=== PATIENT | female | born 1960 ===

== ENCOUNTER → 2018-01-07 10:09 | Outpatient (CLI) | payer OTHER, SELFPAY ==
--- NOTE | 2018-01-07 | DI.MRI.S_ITS ---
PROCEDURE: MR LUMBAR SPINE WO CON INDICATIONS: ACUTE RIGHT SIDED LOW BACK PAIN RIGHT SCIATICA TECHNIQUE: Noncontrast sagittal T1 spin echo and T2 fast echo, sagittal STIR, axial T1 and T2 fast spin echo through the lumbar spine. In cases with scoliosis, additional coronal T2 fast spin echo may be performed. COMPARISON: None. FINDINGS: Image quality: Excellent. Alignment and Curvature: No plain films are available for comparison, for numbering purposes. Thus, for the purposes of this examination, 5 lumbar type vertebral bodies will be presumed, as denoted on the montage panel. This should be confirmed and correlated with plain films, prior to any lumbar spinal intervention.There is normal bony alignment. Bone Marrow: Marrow is of normal overall signal. No acute vertebral body compression fractures. Spinal Cord: Conus medullaris terminates at the upper L2 level. Visualized cord demonstrates normal signal and size. Paraspinous Soft Tissues: No paravertebral masses. L1-L2: Mild bilateral facet hypertrophy. No significant canal, nor foraminal stenosis. L2-L3: Mild bilateral facet hypertrophy. Mild epidural lipomatosis. Mild canal stenosis. No foraminal stenosis. L3-L4: Mild disc desiccation and mild diffuse disc bulge. Mild bilateral facet hypertrophy. Mild epidural lipomatosis. Moderate canal stenosis. Mild bilateral foraminal stenosis. L4-L5: Moderate disc desiccation. Mild diffuse disc bulge. Mild bilateral facet hypertrophy. Mild canal stenosis. Minimal foraminal stenosis bilaterally. L5-S1: Mild bilateral facet hypertrophy. No significant canal, nor foraminal stenosis. IMPRESSION: 1. Multilevel degenerative disc and facet disease, as well as ligamentum flavum hypertrophy and epidural lipomatosis. 2. Mild multilevel canal and foraminal stenoses. No neural impingement. Dictated by: Krys Abdalla M.D. on 01/09/2018 at 9:22 Approved by: Krys Abdalla M.D. on 01/09/2018 at 9:27
== END ==
PROVIDERS: Visit Provider Family Medicine
DX: M51.16 Intervertebral disc disorders with radiculopathy, lumbar region (principal); M48.061 Spinal stenosis, lumbar region without neurogenic claudication; E88.2 Lipomatosis, not elsewhere classified
CPT/HCPCS: 72148

== ENCOUNTER → 2020-09-30 10:35 | Outpatient (CLI) | payer BC, SELFPAY ==
--- NOTE | 2020-09-30 10:37 | DI.US.S_ITS ---
PROCEDURE: US PELVIC COMPLETE INDICATIONS: POSTMENOPAUSAL BLEEDING TECHNIQUE: Real-time scanning was performed of the pelvic organs, with image documentation. Additional endovaginal scanning was necessary due to incomplete visualization of the adnexal and endometrial structures by transabdominal scanning. COMPARISON: None. FINDINGS: Uterus: Uterus is enlarged in size at 8.2 x 9.6 x 11.2 cm. The endometrium could not be accurately visualized due to multiple overlying fibroids. There is a midline intramural fibroid that measures up to 6.0 x 7.6 x 8.1 cm, and on the left there is an anterior intramural fibroid measuring up to 2.7 x 2.9 x 4.0 cm. Also on the left there is a posterior intramural fibroid measuring up to 1.7 x 2.0 x 2.0 cm. This produces heterogeneous shadowing. Ovaries: Not effectively visualized bilaterally likely due to postmenopausal ovarian atrophy and overlying bowel gas. Other: No pathologic free abdominal or pelvic fluid. IMPRESSION: Discussed above the quality of visualization of the endometrial lining is very limited, and accurate assessment for presence or absence of endometrial mass lesion is not possible. The ovaries also could not be seen. Therefore depending on the clinical status follow-up by pelvic MR gynecological malignancy protocol scanning without and with contrast likely is warranted. Dictated by: Luis Carlos Guillory M.D. on 09/30/2020 at 13:02 Approved by: Luis Carlos Guillory M.D. on 09/30/2020 at 13:04
== END ==
PROVIDERS: PCP Family Medicine; Referring Provider Obstetrics & Gynecology; Visit Provider Obstetrics & Gynecology
DX: N95.0 Postmenopausal bleeding (principal); D25.1 Intramural leiomyoma of uterus; Z85.3 Personal history of malignant neoplasm of breast; Z79.811 Long term (current) use of aromatase inhibitors
CPT/HCPCS: 76830; 76856

== ENCOUNTER → 2020-10-13 09:38 | Outpatient (CLI) | payer OTHER, SELFPAY ==
[2020-10-13 17:57] LABS: COVID19 -Nasal RAPID Negative (Negative)
== END ==
PROVIDERS: PCP Family Medicine; Visit Provider Obstetrics & Gynecology
DX: Z01.812 Encounter for preprocedural laboratory examination (principal); Z20.822 Contact with and (suspected) exposure to COVID-19
CPT/HCPCS: 87635

== ENCOUNTER 2020-10-14 10:01 | Day surgery (SDC) | payer OTHER, SELFPAY ==
[2020-10-14] VITALS (9 sets, daily range): BP systolic 117–137; BP diastolic 54–74; PULSE 65–81; RESP 10–20; TEMP 36.3–36.8; O2SAT 97–100; BMI 43.0
--- NOTE | 2020-10-14 | PATH_ITS ---
[facility] Accession Number: [id number] . 01 Material submitted: . endometrium - ENDOMETRIAL CURETTINGS . 01 Clinical history: . HYSTEROSCOPY D/C . 02 Diagnosis: Endometrial Curettings: Portions of endometrial tissue with features of cystic atrophy; negative for glandular hyperplasia, cytologic atypia, or malignancy. Some endometrial fragments demonstrate prominent vessels, suggestive of polyp, if clinical and imaging studies are concordant. V 10/16/2020 1143 Local . 02 Electronically signed: . Sheela Dawn MD, Pathologist NPI- [id number] . 01 Gross description: . ENDOMETRIAL CURETTINGS: Received in formalin are multiple fragment(s) of raphael, soft tissue measuring 3.0 x 0.6 x 0.2 cm in aggregate submitted entirely in 1 cassette(s) 1. /MICHELINE 10/15/2020 0654 Local . 02 Pathologist provided ICD-10: N95.0, Z85.3 . 02 CPT . 767382 Performed at: 01 [facility] [address] [facility], [place], [place] [id number] MD Zachariah Garibay MD Phone: [phone] Performed at: 02 [facility] [address] [place], [place] [id number] MD Aurelia Elias MD Phone: [phone]
--- NOTE | 2020-10-14 09:33 | PM.HP.1 ---
History of Present Illness History of Present Illness Date Patient Seen: 10/14/20 Time Patient Seen: 12:12 Chief complaint: HYSTEROSCOPY D&C Narrative: Patient is a 59-year-old 2 para 0 with postmenopausal bleeding and an enlarged fibroid uterus. She had a stenotic cervix and endometrial biopsy was unsuccessful in the office. Patient History Surgical History (Updated 10/14/20 @ 09:34 by Aurea Cain MD) Status post left breast lumpectomy Family & Social History Tobacco & Substance use: Smoking Status Former smoker Meds Home Medications and Allergies Home Medications Medication Instructions Recorded Confirmed Type aRMOUR PO 10/09/20 History atorvastatin 40 mg tablet 40 mg PO DAILY 10/09/20 10/14/20 History epinephrine 0.3 mg/0.3 mL 0.3 mg IM Q5-15M PRN 10/09/20 10/09/20 History injection, auto-injector (EpiPen) exemestane 25 mg tablet 25 mg PO DAILY 10/09/20 10/14/20 History lisinopril 2.5 mg tablet 2.5 mg PO DAILY 10/09/20 10/14/20 History metformin 500 mg tablet 500 mg PO BID 10/09/20 10/14/20 History montelukast 10 mg tablet 10 mg PO DAILY 10/09/20 10/09/20 History triamterene 37.5 1 tab PO DAILY 10/09/20 10/14/20 History mg-hydrochlorothiazide 25 mg tablet Allergies Allergy/AdvReac Type Severity Reaction Status Date / Time amoxicillin Allergy Intermediate Verified 10/14/20 10:18 Sulfa (Sulfonamide Allergy Intermediate Verified 10/14/20 10:18 Antibiotics) Exam Narrative Exam Narrative: HEENT: No thyromegaly, no anterior cervical or supraclavicular lymphadenopathy. Lungs:Clear to auscultation bilaterally, no wheezes. Cardiovascular: Regular rate and rhythm, no murmurs, rubs, or gallops. Abdomen: No scars. No hepatosplenomegaly. No masses palpable. External genitalia: Normal Vagina: Normal Cervix: Stenotic Bimanual exam: 11 Week size anteverted uterus. Mobile. No adnexal masses or tenderness Assessment & Plan Assessment & Plan narrative: Assessment: 59-year-old 2 para 0 with postmenopausal bleeding and 11 week size fibroid uterus Stenotic cervix Plan: D&C hysteroscopy The risks, benefits, and alternatives to the procedure were explained to the patient. The risks including bleeding, infection, and uterine perforation. She understands these risks and agrees to proceed. A full par Q was held and consent form was signed. COVID-19 COVID-19 status: Negative Result date/Date tested (Pos, Neg/Pending): 10/13/20 Time Spent With Patient Time with patient: less than 15 minutes
--- NOTE | 2020-10-14 09:36 | PM.PREOP ---
Pre-operative Note COVID-19 COVID-19 status: Negative Result date/Date tested (Pos, Neg/Pending): 10/13/20 Interval Note History & Physical reviewed/Exam performed by Physician: Yes Changes to H&P: No H&P completed within 30 days and has changed as indicated here:: 10/14/20
[2020-10-14] MEDS: LACTATED RINGERS 1,000 ML 100 ML IV (10:55)
--- NOTE | 2020-10-14 12:42 | SUR.OPER ---
Lithotomy on padded OR bed, head on pillow, arms secured on padded arm boards at <90 degrees abduction. Legs secured in padded yellow fins stirrups.
--- NOTE | 2020-10-14 12:53 | PM.GYNOP.1 ---
Operative Date/Time/Diagnoses Date of procedure: 10/14/20 Time of procedure: 12:53 Pre-op diagnosis: Postmenopausal bleeding Stenotic cervix Exemestane use Post-op diagnosis: same Procedure & Clinicians Procedure: Procedures Operation Date: 10/14/20 11:15 Actual Procedure Side Surgeon p Hysteroscopy D&C Aurea Cain MD Indications: Postmenopausal bleeding Stenotic cervix Exemestane use Surgeon: Aurea Cain Anesthesia Type: General (LMA) Operative Notes Findings: 8 week size anteverted uterus Both fallopian tube ostia observed No polyps No significant thickening of the lining of the uterus Closure Type: not applicable Specimen(s): endometrial curettings Estimated blood loss (mL): 10 Blood products transfused: none Procedure in detail: After informed consent was obtained, the patient was taken to the operating room where she was placed in the dorsal supine position. After adequate LMA general anesthesia was achieved, she was placed in the dorsal lithotomy position, and prepped and draped in the usual sterile fashion. A time-out was performed. A bivalve speculum was placed into the vagina and the anterior lip of the cervix grasped with a single-tooth tenaculum. The cervical os was sequentially dilated until the hysteroscope could pass easily into the endometrial cavity. Both fallopian tube ostia were observed. There were no polyps. There was no significant thickening of the lining of the uterus. The hysteroscope was removed. Sharp curettage was performed yielding moderate amount of endometrial curettings. The instruments were removed from the uterus. The single-tooth tenaculum was removed from the anterior lip of the cervix. The bivalve speculum was removed from the vagina. Sponge, lap, and instrument counts were correct x2. The patient tolerated the procedure well, and was taken to PACU in stable condition. Complications: none Post-operative Condition: stable Disposition: PACU Plan for aftercare: Home after recovery
[2020-10-14] MEDS: ALBUTEROL 2.5 MG/3 ML NEB (ADULT) INH (13:04)
--- NOTE | 2020-10-14 13:36 | SUR.PHASEI ---
1325 Pt to OPD. SBAR report at [facility] to Araceli PINEDO
--- NOTE | 2020-10-14 14:11 | SUR.PHASEII ---
called [facility] and left message inquiring about status of prescription of oxycodone. Patient and will check pharmacy [place] 4:00. [place]ing pass given and faxed.
== END 2020-10-14 14:12 | disposition home or self-care (01) ==
PROVIDERS: PCP Family Medicine; Referring Provider Obstetrics & Gynecology; Visit Provider Obstetrics & Gynecology
PROC: 0UDB8ZZ Extraction of Endometrium, Via Natural or Artificial Opening Endoscopic (ICD-10-PCS; CPT 58558; principal; 2020-10-14 11:15)
DX: N95.0 Postmenopausal bleeding (principal); Z85.3 Personal history of malignant neoplasm of breast; N88.2 Stricture and stenosis of cervix uteri; I10 Essential (primary) hypertension; J45.909 Unspecified asthma, uncomplicated; E03.9 Hypothyroidism, unspecified; E11.9 Type 2 diabetes mellitus without complications; Z79.84 Long term (current) use of oral hypoglycemic drugs
CPT/HCPCS: 58558; 82962; J1100; J1885; J2250; J2405; J2704; J3010; J7613

== ENCOUNTER → 2021-01-12 15:02 | Outpatient (CLI) | payer OTHER, SELFPAY ==
[2021-01-12 15:42] LABS: COVID19 -Nasal RAPID Negative (Negative)
== END ==
PROVIDERS: PCP Family Medicine; Visit Provider Obstetrics & Gynecology
DX: Z01.812 Encounter for preprocedural laboratory examination (principal); Z20.822 Contact with and (suspected) exposure to COVID-19
CPT/HCPCS: 87635

== ENCOUNTER 2021-01-13 06:25 | Day surgery (SDC) | payer OTHER, SELFPAY ==
[2020-12-31 12:36] VITALS: BMI 43.1
[2021-01-05 22:30] VITALS: BP 150/88; PULSE 92; RESP 18; TEMP 36.5; O2SAT 99
[2021-01-13] VITALS (12 sets, daily range): BP systolic 113–142; BP diastolic 57–77; PULSE 65–104; RESP 11–20; TEMP 36.1–37.2; O2SAT 92–98; BMI 43.1
--- NOTE | 2021-01-13 | PATH_ITS ---
[facility] Accession Number: [id number] . 01 Material submitted: . uterus - UTERUS, BILATERAL FALLOPIAN TUBES, BILATERAL OVARIES . 02 Diagnosis: Uterus, Bilateral Fallopian Tubes, Bilateral Ovaries, Laparoscopic Supracervical Hysterectomy and Bilateral Salpingo-oophorectomy (Morcellated Specimen Weight 351 grams): Weakly proliferative endometrium with patchy features of cystic atrophy; negative for glandular hyperplasia, cytologic atypia, or malignancy. Myometrial tissue with multiple leiomyomas (2-25 mm); negative for atypia or malignancy. Uterine serosa with no significant histomorphologic abnormality. First described ovary with no significant histomorphologic abnormality. Second described ovary with a benign serous cyst (5 mm). Fallopian tubes with multiple benign paratubal cysts (1-3 mm); negative for atypia or malignancy. [facility] 01/16/2021 1215 Local . 02 Electronically signed: . Sheela Dawn MD, Pathologist NPI- [id number] . 01 Gross description: . The specimen is received in formalin, labeled uterus, bilateral fallopian tubes and ovaries and consists of a morcellated uterus weighing 351 grams and measuring 18.0 x 15.0 x 6.0 cm in aggregate. A cervix is not identified. The serosa is raphael-pink and smooth. The raphael-pink endometrium measures 0.1 cm in thickness. The myometrium is raphael-pink and trabeculated. There are multiple raphael-white whorled leiomyomata fragments ranging from 0.2-2.5 cm with no areas of hemorrhage, necrosis or cystic degeneration. Two ovaries are identified measuring 2.0 x 1.5 x 1.0 cm and 2.2 x 1.8 x 1.5 cm. The external surfaces are rapahel and cerebriform. Sectioning reveals a 0.6 x 0.5 x 0.4 cm raphael smooth-walled serous-filled cyst with no papillary excrescences. The fallopian tubes average 6.0 cm in length by 1.0 cm in diameter and display a raphael-pink smooth to ragged serosa with multiple paratubal cysts ranging from 0.1-0.3 cm. Sectioning reveals a raphael-pink mucosa and a stellate lumen measuring 0.3 cm in diameter. Underground Drill Operator sections are submitted. . A1-A5: Underground Drill Operator uterus and leiomyomata. A6: Underground Drill Operator ovary. A7: Underground Drill Operator attached fallopian tube, central cross sections and bisected fimbria. A8: Underground Drill Operator other ovary. A9: Underground Drill Operator other attached fallopian tube, central cross sections and bisected fimbria. (EA:[id number]) /MRV 01/14/2021 1110 Local . 02 Pathologist provided ICD-10: D25.9, N95.0 . 02 CPT . 663406 Performed at: [address] [facility] [address] [address], [place], [place] [id number] MD Zachariah Garibay MD Phone: [phone] Performed at: 02 [facility] [address] [place] [id number] MD Aurelia Elias MD Phone: [phone]
[2021-01-13] MEDS: LACTATED RINGERS 1,000 ML 100 ML IV ×4 (07:33→23:23)
--- NOTE | 2021-01-13 07:33 | PM.PREOP ---
Pre-operative Note COVID-19 COVID-19 status: Negative Result date/Date tested (Pos, Neg/Pending): 01/12/21 Interval Note History & Physical reviewed/Exam performed by Physician: Yes Changes to H&P: No H&P completed within 30 days and has changed as indicated here:: 01/12/21
[2021-01-13] MEDS: ACETAMINOPHEN IV 1,000 MG/100 ML VIAL 400 MG IV (07:41)
[2021-01-13] MEDS: CLINDAMYCIN 900 MG/50 ML PIGGYBACK 50 MG IV (07:57)
[2021-01-13] MEDS: BUPIVACAINE 0.5% (PF) 30 ML, EPINEPHrine 0.15 MG INJ (08:33)
[2021-01-13] MEDS: ROPIVACAINE 0.2% PF 2 MG/ML 10ML AMP 20 ML INJ (08:33)
--- NOTE | 2021-01-13 08:35 | SUR.OPER ---
Lithotomy on padded OR bed. Colquitt Pad Positioner under torso. Head on pillow, arms padded and tucked at sides. Legs secured in padded yellow fins stirrups.
--- NOTE | 2021-01-13 10:24 | PM.GYNOP.1 ---
Operative Date/Time/Diagnoses Date of procedure: 01/13/21 Time of procedure: 10:24 Pre-op diagnosis: Enlarged fibroid uterus Postmenopausal bleeding Post-op diagnosis: same Procedure & Clinicians Procedure: Procedures Operation Date: 01/13/21 07:45 Actual Procedure Side Surgeon p Laparoscopic Supracervical Hysterectomy w/ bilateral salpingectomies/oophorectomies Aurea Cain MD Indications: Enlarged fibroid uterus Postmenopausal bleeding Surgeon: Aurea Cain Salesperson [employer]: [employer] Bradford Anesthesia Type: General and Local Operative Notes Findings: 10 week size multi fibroid uterus including a fibroid in the lower uterine segment and on the left side subserosally. Normal tubes and ovaries Closure Type: primary Specimen(s): left tube & ovary, right tube & ovary and uterus Applied: catheter (Removed at the end of the case) Estimated blood loss (mL): 500 Blood products transfused: none Procedure in detail: The patient was taken to the operating room where she was placed in the dorsal supine position. After adequate general endotracheal anesthesia was achieved, she was placed in the dorsal lithotomy position, and prepped and draped in the usual sterile fashion. A timeout was performed. A bivalve speculum was placed into the vagina and the anterior lip of the cervix grasped with a single-tooth tenaculum. The cervical os was sequentially dilated until the ZUMI uterine manipulator could pass easily into the endometrial cavity. The single-tooth tenaculum was removed from the anterior lip of the cervix, and the bivalve speculum was removed from the vagina. Attention was then turned to the abdomen where 6 mL of half percent Marcaine with epinephrine were injected in the umbilical fold. A 5 mm incision was made. The veress needle was placed into the peritoneal cavity, and its placement confirmed by aspiration and drop test. The veress needle was removed. A 5 mm trocar was placed without difficulty. 2 other incisions were made 4 cm lateral to the umbilicus after 5 mL of half percent Marcaine with epinephrine were injected. These were 5 mm incisions. Two, 5 mm trochars were placed under direct visualization. The right tube and ovary were grasped with an atraumatic grasper. Using the plasma kinetic with settings of 40 W the infundibulopelvic ligament was cauterized and cut. The cornua of the uterus was then grasped with an atraumatic grasper. The utero-ovarian ligaments were cauterized and cut. The round ligament and broad ligament were cauterized and cut with plasma kinetic. Hemostasis was achieved. The bladder flap was created using the plasma kinetic with cautery and cut nursing home across. The uterine arteries on the right side were extensively cauterized with plasma kinetic. All of this was repeated on the left side. The remainder of the bladder flap was created using the plasma kinetic, and the bladder taken down off the lower uterine segment and cervix. Using the L[place]oop, the cervix was amputated from the uterus 2 cm above the uterosacral ligaments, after the ZUMI uterine manipulator was removed from the uterus and a moistened sponge stick was placed in the vagina. There was a small amount of bleeding noted from the posterior edge of the cervix, and this was cauterized for hemostasis. 6 mL of half percent Marcaine with epinephrine were injected above the pubic symphysis. A 12mm incision was made. A 12 mm trocar was placed under direct visualization. An Endobag was placed through the suprapubic trochar and the uterus, tubes and ovaries were placed into the Endobag. The trochar was removed. The uterus was morcellated in approximately 8 pieces. The tubes and ovaries were also removed from the Endobag. The Endobag was removed from the peritoneal cavity. The pelvis was copiously irrigated with warm normal saline. No bleeding was noted. 20 mL of 0.2% ropivacaine were placed over the pelvic pedicles. The instruments were removed from the abdomen. The CO2 was allowed to escape. The suprapubic incision was closed on the fascia with 0 Vicryl. All of the incisions were closed with 4-0 Biosyn in a subcuticular fashion. Steri strips, 2x2's and op sites were placed over the incisions. The moistened sponge stick was removed from the vagina. Sponge, lap, and instrument counts were correct x 2. The patient tolerated the procedure well, was taken to PACU in stable condition. Complications: none Post-operative Condition: stable Disposition: PACU Plan for aftercare: To acute care after recovery
--- NOTE | 2021-01-13 10:40 | SUR.PHASEI ---
Patient to recovery room from OR in stable condition; awake but drowsy; vss; denies nausea or SOB: patient denies much pain at this time. Dressings to abdomen CDI; peripad dry. Lungs CTA. Ice chips provided. Following all commands.
[2021-01-13] MEDS: HYDROMORPHONE 2 MG INJ IV (10:46)
[2021-01-13] MEDS: ONDANSETRON 4 MG/2 ML INJ IV (10:46)
[2021-01-13] MEDS: OXYCODONE IR 5 MG TABLET PO ×2 (10:46→12:33)
--- NOTE | 2021-01-13 10:59 | SUR.PHASEI ---
Recheck of abdominal dressings remain clean dry and intact; scant drainage noted to marquis pad; patient drinking water without difficulty.
[2021-01-13] MEDS: ACETAMINOPHEN 325 MG TABLET 650 MG PO ×2 (12:32→21:56)
--- NOTE | 2021-01-13 13:59 | PC.NURSE ---
1130 A 60 y/o female patient transferred from PACU via bed,patient alert and oriented x3, 4x incision site; CDI, moving all extremities.VSS. 1200 patient up to bathroom voided at least 50cc yellow urine. then back to bed. 1200 gave patient 5mg oxycodone and 650 mg tylenol for pain scale 5/10; VSS. Iv runing at 100cc/hr.SCD's in place; comfortable in bed.CPAP on.
[2021-01-13] MEDS: KETOROLAC 30 MG/ML VIAL IV ×2 (16:12→21:56)
--- NOTE | 2021-01-13 16:15 | PC.NURSE ---
# 2 Toradol 30 mg IV given, patient resting
[2021-01-13] MEDS: METFORMIN HCL 500 MG TABLET PO (17:19)
[2021-01-13 18:37] LABS: Estimated Glomerular Filt Rate > 60.0 mL/min (>60)
--- NOTE | 2021-01-13 23:36 | PC.NURSE ---
Addendum entered by Rosenda Slater R.N. 01/13/21 23:43: correction- L side of incision Original Note: @1940 01/13/21 late entry-report received from Jihan PINEDO-TUAN drain on right side on incision not draining bandage changed due to saturation of blood-Tis Rn called Dr. canseco to give detailed report-POC per PCP to add pressure and continue to monitor-no inflammation/pain or warmth at site-this RN put towel under pannis and instructed pt to recline and rest-call this RN if more bleeding or anty pain-this RN checking in hourly per protocol
--- NOTE | 2021-01-13 23:49 | PC.NURSE ---
pt resting comfortably-laperoscopic sites w no drainage/ acet PO/ ketorolac IV given per medication schedule pt 's questions answered oriented to unit and hospital protocols CPap and SCDs on pt attempting to rest, she will call this RN when she needs to get up to BR. Pt states ' I have already been up to the BR 2 times to go. Pain 3/10 and states, I'm feeling just fine. This RN will cont. to assess hourly. all vitals WNL
[2021-01-14] MEDS: ACETAMINOPHEN 325 MG TABLET 650 MG PO (04:09)
[2021-01-14] MEDS: KETOROLAC 30 MG/ML VIAL IV (04:09)
[2021-01-14 04:35] VITALS: BP 135/65; RESP 16; TEMP 36.1; O2SAT 97
[2021-01-14 07:32] LABS: Add Manual Diff / Slide Review NO; Basophils Absolute Auto 100 /uL (0-100); Basophils Percent Auto 0.4 % (0-2); Eosinophils Absolute Auto 100 /uL (0-450); Eosinophils Percent Auto 0.6 % (2-4); Hematocrit 28.7 % (36-46); Hemoglobin 9.5 g/dL (12.0-16.0); Lymphocytes Absolute Auto 2000 /uL (1100-4500); Lymphocytes Percent Auto 14.4 % (25-40); Mean Corpuscular HGB Conc 33.1 % (30-36); Mean Corpuscular Volume 87.6 fL (80-100); Monocytes Absolute Auto 700 /uL (0-900); Monocytes Percent Auto 4.9 % (3-14); Neutrophils Absolute Auto 10800 /uL (1500-7000); Neutrophils Percent Auto 79.7 % (50-75); Platelet Count 200 X10^3/uL (150-400); Red Blood Cell Count 3.28 X10^6/uL (4.0-5.2); Red Cell Distribution Width 13.5 % (11.6-14.8); White Blood Cell Count 13.6 X10^3/uL (4.5-11.0)
[2021-01-14] MEDS: THYROID, PORK 30 MG TABLET 120 MG PO (08:18)
[2021-01-14] MEDS: METFORMIN HCL 500 MG TABLET PO (08:19)
[2021-01-14] MEDS: TRIAMTERENE/HCTZ 37.5/25 CAPSULE 1 CAP PO (08:19)
[2021-01-14] MEDS: LORATADINE 10 MG TABLET PO (08:19)
[2021-01-14 08:20] VITALS: BP 126/72
[2021-01-14] MEDS: EXEMESTANE 25 MG TABLET PO (08:20)
[2021-01-14] MEDS: MONTELUKAST 10 MG TABLET PO (08:20)
[2021-01-14] MEDS: lisinopriL 5 MG TABLET 2.5 MG PO (08:20)
== END 2021-01-14 08:59 | disposition home or self-care (01) ==
LOC: OR 06:28 → LABOR 11:41
PROVIDERS: PCP Family Medicine; Referring Provider Obstetrics & Gynecology; Visit Provider Obstetrics & Gynecology
PROC: 0UT94ZL Resection of Uterus, Supracervical, Percutaneous Endoscopic Approach (ICD-10-PCS; CPT 58544; principal; 2021-01-13 07:45)
DX: D25.2 Subserosal leiomyoma of uterus (principal); N95.0 Postmenopausal bleeding; J45.909 Unspecified asthma, uncomplicated; E11.9 Type 2 diabetes mellitus without complications; I10 Essential (primary) hypertension; E78.5 Hyperlipidemia, unspecified; E03.9 Hypothyroidism, unspecified; N83.209 Unspecified ovarian cyst, unspecified side; N83.8 Other noninflammatory disorders of ovary, fallopian tube and broad ligament
CPT/HCPCS: 58544; 36415; 82565; 85025; J0131; J0171; J1100; J1170; J1885; J2250; J2405; J2704; J2795; J3010